=== PATIENT | female | born 1970 | race Caucasian/White ===

== ENCOUNTER 2017-06-26 20:31 | Emergency (ER) | payer MEDICAID, OTHER ==
[~2017-06-26] VITALS: Ht 157.5 cm; Wt 81.2 kg
[2017-06-26 20:41] VITALS: BP 140/80
[2017-06-26 22:03] VITALS: BP 136/72
== END 2017-06-26 22:03 | disposition home or self-care (01) ==
LOC: MED 20:31
DX: J20.9 Acute bronchitis, unspecified (principal); Z88.6 Allergy status to analgesic agent
CPT/HCPCS: 36415; 87804; 99284

== ENCOUNTER 2018-02-12 23:03 | Emergency (ER) | payer MEDICAID, OTHER ==
[~2018-02-12] VITALS: Ht 157.5 cm; Wt 79.4 kg
[2018-02-12 23:22] VITALS: BP 125/77
--- NOTE | 2018-02-12 23:22 | NUR ---
47/F CAME IN W C/O PERSISITENT COUGH, SORE THROAT X 1 WEEK. DENIES SOB, ALL LUNG SOUNDS CBTA, 18RR EVEN AND UNLABORED. ALSO REPORTS FEVER. DENIES PMH
--- NOTE | 2018-02-12 23:22 | NUR ---
[facility] # 5 AMBULATORY, REPORT GIVEN TO FELICIA GONZALEZ
[2018-02-12] MEDS ORDERED: ALBUTEROL SULFATE/IPRATROPIU 3 ML SOL IH ONE (23:45)
--- NOTE | 2018-02-13 00:40 | NUR ---
Patient appears to be resting comfortably in bed. Vital Signs within normal limits. Respirations even and unlabored.
--- NOTE | 2018-02-13 01:24 | NUR ---
Patient discharged with v/s stable. Written and verbal after care instructions given and explained. Patient alert, oriented and verbalized understanding of instructions. Ambulatory with steady gait. All questions addressed prior to discharge. ID band removed. Patient advised to follow up with PMD. Rx of FLONASE, PROMETHAZINE/DEXTROMETHORPHAN, MEHDI given. Patient educated on indication of medication including possible reaction and side effects. Opportunity to ask questions provided and answered.
[2018-02-13 01:35] VITALS: BP 101/59
== END 2018-02-13 01:24 | disposition home or self-care (01) ==
LOC: MED 23:03
DX: J30.9 Allergic rhinitis, unspecified (principal); Z88.6 Allergy status to analgesic agent
CPT/HCPCS: 71045; 87081; 94640; 94760; 99285; J7620; Q0092

== ENCOUNTER 2019-01-25 07:36 | Emergency (ER) | payer MEDICAID, OTHER ==
[~2019-01-25] VITALS: Ht 157.5 cm; Wt 86.6 kg
--- NOTE | 2019-01-25 07:36 | NUR ---
Florina rob in [facility] - 01/25/19 at 0811 by MEDKIRILL PRASHANT WAS TRANSFERED TO [facility] 9
[2019-01-25] MEDS ORDERED: NACL 0.9% 500 ML IV SCH (07:40)
[2019-01-25 07:52] VITALS: BP 128/82
--- NOTE | 2019-01-25 08:00 | NUR ---
PT TAKEN TO BED 4.
--- NOTE | 2019-01-25 08:00 | NUR ---
BIB SELF. AAO X4 C/O L CALF PAIN 01/21 X 2DAYS. PT STATES SHE GOT A CRAMP IN HER R LEG WHILE WALKING ON WEDNESDAY, THEN HER L LEG "GAVE OUT" AND SHE FELL AND HEARD A "POP". NO OBVIOUS DEFORMITY NOTED. + CMS TO LEFT LEFT LOWER EXTREMITY. PT HAS A STEADY GAIT. HOB UP. BED SIDE RAILS UP X1. ON LOW BED POSITION, LOCKED. ER TO EVALUATE PT.
--- NOTE | 2019-01-25 08:25 | NUR ---
DR VINCENT AT BEDSIDE FOR PT EVALUATION
[2019-01-25] MEDS ORDERED: ACETAMINOPHEN EXTRA STRENGTH 500 MG TAB PO ONE (08:30)
--- NOTE | 2019-01-25 08:50 | NUR ---
CAPTAIN/CHECK AIRMAN AT BEDSIDE
[2019-01-25 09:46] VITALS: BP 124/84
--- NOTE | 2019-01-25 09:46 | NUR ---
Patient discharged with v/s stable. Written and verbal after care instructions given and explained. Patient alert, oriented and verbalized understanding of instructions. Ambulatory with steady gait. All questions addressed prior to discharge. ID band removed. Patient advised to follow up with PMD. Rx of TRAMADOL HYDROCHLORIDE 50 MG given. Patient educated on indication of medication including possible reaction and side effects. Opportunity to ask questions provided and answered.
== END 2019-01-25 09:46 | disposition home or self-care (01) ==
LOC: MED 07:36
DX: S86.912A Strain of unspecified muscle(s) and tendon(s) at lower leg level, left leg, initial encounter (principal); R03.0 Elevated blood-pressure reading, without diagnosis of hypertension; Z79.82 Long term (current) use of aspirin; X58.XXXA Exposure to other specified factors, initial encounter; Y93.89 Activity, other specified; Y92.89 Other specified places as the place of occurrence of the external cause; Y99.8 Other external cause status
CPT/HCPCS: 81025; 93971; 99284; Q0092

== ENCOUNTER 2019-02-05 07:44 | Emergency (ER) | payer MEDICAID ==
[~2019-02-05] VITALS: Ht 157.5 cm; Wt 81.6 kg
[2019-02-05 07:45] VITALS: BP 122/84
--- NOTE | 2019-02-05 07:47 | NUR ---
PATIENT BIBA TO BED 7 AT THIS TIME.
--- NOTE | 2019-02-05 07:50 | NUR ---
PATIENT BIB [facility] WITH C/O LOWER ABDOMINAL PAIN RADIATING TO BACK X3 DAYS, STATED ATE SOMETHING BEFORE THIS ALL STARTED, +NAUSEA/DIARRHEA, HX OF HESTERECTOMY, PATIENT STATES PAIN OF 10/10 AT THIS TIME; VSS; PATIENT POSITIONED FOR COMFORT; HOB ELEVATED; BEDRAILS UP X2; BED DOWN. ER MD MADE AWARE OF PT STATUS.
--- NOTE | 2019-02-05 08:00 | NUR ---
Patient being evaluated by physician at bedside.
[2019-02-05] MEDS ORDERED: NACL 0.9% 1,000 ML IV ONE (08:01)
[2019-02-05] MEDS ORDERED: ONDANSETRON 4 MG/2 ML VIAL IVP ONE (08:05)
[2019-02-05] MEDS ORDERED: MORPHINE SULFATE 4 MG/ML SYR IVP ONE (08:05)
[2019-02-05 08:59] LABS: BASOPHILS % (AUTO) 0.4 % (0.0-2.0); EOSINOPHILS # (AUTO) 0.4 K/uL (0-0.4); EOSINOPHILS % (AUTO) 4.4 % (0.0-4.0); HEMATOCRIT 42.2 % (36-48); HEMOGLOBIN 13.9 g/dL (12.0-16.0); LYMPHOCYTES # (AUTO) 1.4 K/uL (2.5-16.5); LYMPHOCYTES % (AUTO) 14.7 % (20.5-51.1); MEAN CORPUSCULAR HEMOGLOBIN 30 pg (27-31); MEAN CORPUSCULAR HGB CONC 33 g/dL (33-37); MEAN CORPUSCULAR VOLUME 89.8 fL (80-94); MONOCYTES # (AUTO) 0.7 K/uL (0.8-1.0); MONOCYTES % (AUTO) 7.5 % (1.7-9.3); NEUTROPHILS # (AUTO) 6.9 K/uL (1.8-7.7); PLATELET COUNT (AUTO) 341 K/uL (140-450); RED CELL DISTRIBUTION WIDTH 14.1 % (11.6-13.7); WHITE BLOOD COUNT (AUTO) 9.5 K/uL (4.8-10.8)
[2019-02-05 09:10] LABS: ANION GAP 12.9 (8-16); CARBON DIOXIDE 26.7 mmol/L (21-32); CREATININE 0.8 mg/dL (0.6-1.3); POTASSIUM 3.6 mmol/L (3.5-5.1)
[2019-02-05 09:17] LABS: ALBUMIN 3.5 g/dL (3.4-5.0); TOTAL BILIRUBIN 0.3 mg/dL (0.0-1.0)
--- NOTE | 2019-02-05 09:31 | NUR ---
Patient resting in bed, side rails up x2, family at bedside.
--- NOTE | 2019-02-05 09:45 | NUR ---
PT RESTING IN BED, VSS, ABD PAIN 2/10, WILL CONTINUE TO MONITOR.
[2019-02-05 11:20] VITALS: BP 118/80
--- NOTE | 2019-02-05 11:20 | NUR ---
Patient discharged with v/s stable. Written and verbal after care instructions given and explained. Rx of BENTYL AND ZOFRAN given. Patient educated on indication of medication including possible reaction and side effects. All questions addressed prior to discharge. IV SITE REMOVED, ID band removed. Patient advised to follow up with PMD.
[2019-02-05 15:43] LABS: APPEARANCE,URINE HAZY (CLEAR); BILIRUBIN,URINE NEGATIVE (NEGATIVE); BLOOD, URINE NEGATIVE (NEGATIVE); COLOR,URINE YELLOW (YELLOW); LEUKOCYTE ESTERASE ,URINE TRACE (NEGATIVE); NITRITE, URINE NEGATIVE (NEGATIVE); UGLUCOSE NEGATIVE (NEGATIVE)
[2019-02-05 15:48] LABS: RBC,URINE 0-5 /HPF (0-5)
[2019-02-07] MEDS ORDERED: ONDA4TAB PO (10:02)
[2019-02-07] MEDS ORDERED: OMEP20TC12 PO (10:02)
== END 2019-02-05 11:20 | disposition home or self-care (01) ==
LOC: MED 07:44
DX: R11.2 Nausea with vomiting, unspecified (principal); R19.7 Diarrhea, unspecified; Z88.6 Allergy status to analgesic agent; Z90.710 Acquired absence of both cervix and uterus
CPT/HCPCS: 36415; 74176; 80053; 81001; 81025; 83690; 85025; 87086; 96361; 96374; 96375; 99284; J2270; J2405; J7030